=== PATIENT | male | born 1975 | race Asian ===

== ENCOUNTER 2017-06-23 12:19 | Emergency (ER) | payer OTHER ==
[~2017-06-23] VITALS: Ht 167.6 cm; Wt 86.2 kg
[2017-06-23 13:13] LABS: PLATELET COUNT 229 K/uL (142-355)
[2017-06-23 13:28] LABS: POTASSIUM 3.3 mmol/L (3.6-5.2); SODIUM 135 mmol/L (136-145)
[2017-06-23 13:44] LABS: PARTIAL THROMBOPLASTIN TIME 29.4 SECONDS (24.5-33.6)
== END 2017-06-24 09:56 | disposition home or self-care (01) ==
LOC: ED 12:19
PROVIDERS: Internal Medicine
DX: F19.239 Other psychoactive substance dependence with withdrawal, unspecified (principal)
CPT/HCPCS: 80053; 80307; 80320; 80329; 81000; 85027; 85610; 85730; 99285; G0479